=== PATIENT | female | born 1955 | race Caucasian/White ===

== ENCOUNTER 2020-11-08 14:08 | Outpatient (RCR) | payer MEDICARE, BC, SELFPAY ==
[2020-08-23 08:55] VITALS: BMI 41.3
[2020-11-08] MEDS: COVID-19 VACC, MRNA(PFIZER)/PF 30 MCG/0.3 ML SYRINGE IM (09:50)
[2020-11-29] MEDS: COVID-19 VACC, MRNA(PFIZER)/PF 30 MCG/0.3 ML SYRINGE IM (09:32)
== END 2021-02-07 23:59 ==
LOC: IMMUN 14:08
PROVIDERS: PCP Student in an Organized Health Care Education/Training Program; Visit Provider Family Medicine
DX: Z23 Encounter for immunization (principal)
CPT/HCPCS: 0001A; 0002A; 91300

== ENCOUNTER 2021-02-23 15:00 | Outpatient (RCR) | payer MEDICARE, BC, SELFPAY ==
[2020-08-23 08:55] VITALS: BMI 41.3
== END 2021-03-01 23:59 ==
LOC: DC 15:00
PROVIDERS: PCP Student in an Organized Health Care Education/Training Program; Visit Provider Student in an Organized Health Care Education/Training Program
DX: E11.65 Type 2 diabetes mellitus with hyperglycemia (principal)
CPT/HCPCS: 97802; G0108

== ENCOUNTER 2021-03-22 15:00 | Outpatient (RCR) | payer MEDICARE, BC, SELFPAY ==
[2020-08-23 08:55] VITALS: BMI 41.3
== END 2021-04-01 23:59 ==
LOC: DC 15:00
PROVIDERS: PCP Student in an Organized Health Care Education/Training Program; Visit Provider Student in an Organized Health Care Education/Training Program
DX: E11.65 Type 2 diabetes mellitus with hyperglycemia (principal)
CPT/HCPCS: 97803; G0108; G0109

== ENCOUNTER 2021-05-03 09:51 | Outpatient (RCR) | payer MEDICARE, BC, SELFPAY ==
[2020-08-23 08:55] VITALS: BMI 41.3
== END 2021-06-01 23:59 ==
LOC: DC 09:51
PROVIDERS: PCP Student in an Organized Health Care Education/Training Program; Visit Provider Student in an Organized Health Care Education/Training Program
DX: E11.65 Type 2 diabetes mellitus with hyperglycemia (principal)
CPT/HCPCS: 97803

== ENCOUNTER 2021-08-09 16:01 | Outpatient (RCR) | payer MEDICARE, BC, SELFPAY ==
[2021-06-02 00:08] VITALS: BMI 41.3
== END 2021-09-01 23:59 ==
LOC: DC 16:01
PROVIDERS: PCP Student in an Organized Health Care Education/Training Program; Visit Provider Student in an Organized Health Care Education/Training Program
DX: E11.65 Type 2 diabetes mellitus with hyperglycemia (principal)
CPT/HCPCS: 97803

== ENCOUNTER 2021-09-20 13:00 | Outpatient (RCR) | payer MEDICARE, BC, SELFPAY ==
[2021-09-02 00:04] VITALS: BMI 41.3
== END 2021-10-02 23:59 ==
LOC: DC 13:00
PROVIDERS: PCP Student in an Organized Health Care Education/Training Program; Visit Provider Student in an Organized Health Care Education/Training Program
DX: E11.65 Type 2 diabetes mellitus with hyperglycemia (principal); Z71.3 Dietary counseling and surveillance
CPT/HCPCS: 97803; G0109

== ENCOUNTER 2021-11-13 07:20 | Outpatient (CLI) | payer MEDICARE, BC, SELFPAY ==
--- NOTE | 2021-11-13 18:03 | STRESSREP ---
Stress Test Report Pharmacologic myocardial perfusion stress test. 66-year-old lady with a history of coronary artery disease. Medications aspirin metoprolol losartan Metformin pravastatin. Stress protocol: Resting EKG demonstrates normal sinus rhythm with a rate of 96 bpm resting blood pressure is 142/76 mmHg. 0.4 mg of regadenoson was infused per usual protocol followed by rapid intravenous saline flush injection continuous EKG monitoring was performed the maximum heart rate was 133 bpm which was 86% of max impact at heart rate the maximum workload was 1 metabolic equivalent. At rest there were no ST or T wave changes noted to suggest ischemia and at peak infusion nonspecific ST changes were noted with did not meet the criteria for ischemia. No clinical angina is noted. Myocardial perfusion protocol. 14.4 mCi of technetium 99m sestamibi was injected at rest. 0.4 mg of regadenoson was infused per usual protocol. At peak infusion 44.5 mCi of technetium 99m sestamibi was injected stress images were obtained stress and rest images were reconstructed and compared in the short axis vertical long and horizontal long axis. Gated images were also obtained. Perfusion SPECT analysis: Review of the images demonstrated normal uptake of tracer noted in all areas of the myocardium. The resting images similarly demonstrate no perfusion defects noted. The above is suggestive of a normal perfusion scan. No previous infarct is noted. Gated SPECT analysis: The gated ejection fraction is 70%. Conclusion: Normal pharmacologic myocardial perfusion stress test. Preserved ejection fraction.
== END 2021-11-13 23:59 | disposition home or self-care (01) ==
LOC: CVS 07:23
PROVIDERS: PCP Student in an Organized Health Care Education/Training Program; Referring Provider Nurse Practitioner Gerontology; Visit Provider Nurse Practitioner Gerontology
DX: I25.10 Atherosclerotic heart disease of native coronary artery without angina pectoris (principal)
CPT/HCPCS: 78452; 93017; A9500; A4216; J2785

== ENCOUNTER 2021-12-07 15:58 | Outpatient (RCR) | payer MEDICARE, BC, SELFPAY ==
[2021-10-03 00:12] VITALS: BMI 41.3
== END 2021-12-30 23:59 ==
LOC: DC 15:58
PROVIDERS: PCP Student in an Organized Health Care Education/Training Program; Visit Provider Student in an Organized Health Care Education/Training Program
DX: E11.65 Type 2 diabetes mellitus with hyperglycemia (principal)
CPT/HCPCS: G0109

== ENCOUNTER 2022-01-17 12:51 | Outpatient (RCR) | payer MEDICARE, BC, SELFPAY ==
[2021-12-31 00:06] VITALS: BMI 41.3
== END 2022-01-30 23:59 ==
LOC: DC 12:51
PROVIDERS: PCP Student in an Organized Health Care Education/Training Program; Visit Provider Student in an Organized Health Care Education/Training Program
DX: E11.65 Type 2 diabetes mellitus with hyperglycemia (principal)
CPT/HCPCS: 97803

== ENCOUNTER 2022-02-01 16:09 | Outpatient (RCR) | payer MEDICARE, BC, SELFPAY ==
[2022-01-31 00:19] VITALS: BMI 41.3
== END 2022-02-01 20:59 | disposition home or self-care (01) ==
LOC: DC 16:09
PROVIDERS: PCP Student in an Organized Health Care Education/Training Program; Visit Provider Student in an Organized Health Care Education/Training Program
DX: E11.65 Type 2 diabetes mellitus with hyperglycemia (principal)
CPT/HCPCS: G0109

== ENCOUNTER → 2022-08-21 | Outpatient (CLI) | payer MEDICARE, BC, SELFPAY ==
--- NOTE | 2022-08-21 13:00 | ECHOCS_ITS ---
Reason For Study: CAD/ASHD Procedure This was a 2D Doppler, Color Flow transthoracic echocardiogram. The study was technically difficult. D/T respiratory interference. Limited views were obtained. Exam performed in department. Left Ventricle Normal LV size. Left ventricular systolic function is normal. The estimated ejection fraction is 55 %. Stage 1 diastolic dysfunction. No regional wall motion abnormalities noted. Right Ventricle Normal RV size. Normal systolic function. Atria Normal left atrium. Normal right atrium. Mitral Valve Normal mitral valve. Tricuspid Valve Normal tricuspid valve. Aortic Valve The aortic valve is not well visualized. Pulmonic Valve Normal pulmonic valve. Great Vessels Normal aortic root. The pulmonary artery is normal size. Normal inferior vena cava. Pericardium/Pleural No pericardial effusion. Medication 22 gauge I.V. with prn adaptor inserted into right arm. MMode/2D Measurements & Calculations LVIDd: 5.3 cm IVSd: 0.79 cm Ao root diam: 3.0 cm LVIDs: 3.7 cm LVPWd: 0.82 cm RVDd: 3.5 cm FS: 29.4 % LAV(MOD-bp): 49.2 ml LVAd ap4: 27.3 cm2 LVAd ap2: 29.8 cm2 LAV(MOD-bp) Indexed: 24.7 ml/m2 LVLd ap4: 7.9 cm LVLd ap2: 7.8 cm LAV(MOD-sp2): 41.3 ml EDV(MOD-sp4): 78.1 ml EDV(MOD-sp2): 93.6 ml LAV(MOD-sp4): 59.3 ml EDV(sp4-el): 80.3 ml EDV(sp2-el): 96.3 ml LVAs ap4: 15.2 cm2 LVAs ap2: 17.2 cm2 LVLs ap4: 6.4 cm LVLs ap2: 6.6 cm ESV(MOD-sp4): 31.3 ml ESV(MOD-sp2): 37.0 ml ESV(sp4-el): 30.6 ml ESV(sp2-el): 38.1 ml EF(MOD-sp4): 60.0 % EF(MOD-sp2): 60.5 % EF(sp4-el): 61.9 % SV(MOD-sp4): 46.9 ml SV(MOD-sp2): 56.6 ml SV(sp4-el): 49.6 ml LA A4 area: 19.7 cm2 LA dimension(2D): 4.7 cm RA A4 area: 13.1 cm2 Time Measurements MV dec time: 0.30 sec Doppler Measurements & Calculations MV E max donavon: 70.2 cm/sec Lat Peak E' Donavon: 7.8 cm/sec Med Peak E' Donavon: 4.1 cm/sec MV A max donavon: 84.0 cm/sec E/E' lat: 9.0 E/E' med: 17.0 MV E/A: 0.84 Ao V2 max: 136.0 cm/sec LV V1 max: 88.2 cm/sec PA V2 max: 118.6 cm/sec Ao max P.4 mmHg LV V1 max P.1 mmHg Ao V2 mean: 98.4 cm/sec LV V1 mean P.8 mmHg Ao mean P.2 mmHg LV V1 mean: 63.6 cm/sec Ao V2 VTI: 30.3 cm LV V1 VTI: 21.2 cm AV (velocity ratio): 0.70 ECHO/Echo Complete W/ Contrast Interpretation Summary Normal LV size. Left ventricular systolic function is normal. The estimated ejection fraction is 55 %. Stage 1 diastolic dysfunction. Contrast injection was performed. Ordering Physician: Wong Livingston Referring Physician: Wong Livingston Performed By: Tiara Dickey, RDCS, RVT
== END | disposition home or self-care (01) ==
LOC: CVS 12:59
PROVIDERS: PCP Student in an Organized Health Care Education/Training Program; Referring Provider Internal Medicine Cardiovascular Disease; Visit Provider Internal Medicine Cardiovascular Disease
DX: I25.2 Old myocardial infarction (principal)
CPT/HCPCS: 93306; Q9957; A4216; C8929